=== PATIENT | female | born 1995 | race Caucasian/White ===

== ENCOUNTER 2017-12-09 19:51 | Emergency (ER) | payer BC, OTHER ==
[~2017-12-09] VITALS: Ht 175.3 cm; Wt 65.5 kg
[~2017-12-09 19:51] MED LIST: FLUC150T2 PO; HYDR-3237 PO; METR500T PO; [UNRECOGNIZED DRUG - OTHER]
[2017-12-09] MEDS ORDERED: KETOROLAC 30 MG/1 ML ONE (20:54)
[2017-12-09] MEDS ORDERED: HYDROcodone/APAP 5/325 TABLET ONE (20:54)
[2017-12-09] MEDS ORDERED: KETOROLAC 30 MG/1 ML IM ONE (21:00)
[2017-12-09] MEDS ORDERED: HYDROcodone/APAP 5/325 TABLET PO PRN (21:00)
[2017-12-09 22:16] VITALS: BP 117/69
== END 2017-12-09 22:16 | disposition home or self-care (01) ==
LOC: ED 22:10
DX: S82.64XA Nondisplaced fracture of lateral malleolus of right fibula, initial encounter for closed fracture (principal); X50.1XXA Overexertion from prolonged static or awkward postures, initial encounter; Y93.89 Activity, other specified; Y99.8 Other external cause status; Y92.009 Unspecified place in unspecified non-institutional (private) residence as the place of occurrence of the external cause
CPT/HCPCS: 29515; 73590; 73610; 73630; 96372; 99284; J1885